=== PATIENT | male | born 1945 | race Hispanic/Latino ===

== ENCOUNTER 2018-10-29 06:19 | Day surgery (SDC) | payer MEDICARE, MEDICAID ==
[2018-10-21 12:22] VITALS: BMI 31.5
--- NOTE | 2018-10-29 07:22 | HP ---
DATE OF EXAM: 10/13/2018 The patient is going to be admitted for surgery on 10/29/2018. HISTORY OF PRESENT ILLNESS: The patient is a 72-year-old gentleman that has been suffering from a variety of problems, which include significant numbness involving his left hand, predominantly the radial third and fourth finger. He has been dropping things. He notes that this has been going on for years. He has neck pain. He also has been having progressive incontinence. He notes that when he is sitting or lying down and when he gets up, he feels he cannot hold his urine. He also notes some balance problems. He denies any abdominal complaints. PAST MEDICAL HISTORY: Significant for hypertension and hypercholesterolemia. SOCIAL HISTORY: He has never smoked. He has never drank. He lives alone. PHYSICAL EXAMINATION: Debilitated fellow, walking with a quad cane. He favors his right hip. He has 5/5 strength throughout on individual muscle testing. Sensory exam is relatively within normal limits. Reflexes are 1 to 2+ throughout. Hastings's negative bilaterally. Lhermitte sign is equivocal. Tinel sign was negative at both wrists as was Phalen sign. He has minimal tenderness to palpation of the cervical spine. Range of motion was restricted on lumbar spine. Baseline gait was markedly antalgic. LABORATORY DATA: MRI of the cervical spine shows a concerning disk herniation at C3-4 impacting the left side of his spinal cord. Other levels, there appears to be the foraminal stenosis, but no central canal compromise. EMG nerve conduction study done several years ago demonstrated severe bilateral median neuropathy consistent with carpal tunnel syndrome. I believe that his most pressing situation is the spinal cord correction at C3-4. I do believe he is also suffering with bilateral carpal tunnel syndrome. He has a hip problem. He has a lumbar spine problem, but again the overriding concern is the spinal cord compression. Particularly, in this patient, who is evincing incontinence, it would certainly may be related to some prostate disease or other phenomenon, but the cervical spine compression certainly is not helping. He also is suffering with radiculopathy, neck pain, as well as balance problems and therefore I suggested anterior diskectomy, fixation and fusion. I went over the nature of this recommendation with him including the rationale behind it, the details of the procedure itself, potential risks, complications, alternatives, realistic chance of success, and recovery time. I answered all of his questions. I was counseling and coordinating throughout our discussion. He is now being admitted for C3-4 ACDF. Montana Wilkinson MD
[2018-10-29] MEDS ORDERED: Bacitracin 500 Units/gm Oint Foilpak UD ONE (07:32)
[2018-10-29] MEDS ORDERED: Vancomycin 1 g Inj ONE (07:32)
[2018-10-29] MEDS ORDERED: Lidocaine 1% w Epi 1:100,000 Inj ONE (07:33)
[2018-10-29] MEDS ORDERED: Absorbable Gelatin Sponge Size 12-7 ONE (07:33)
[2018-10-29] MEDS ORDERED: Bupivacaine 0.5% 50 ML IJ ONE (07:33)
[2018-10-29] MEDS ORDERED: Thrombin Topical 20,000 Intl Units Spray Kit TOP ONE ×2 (07:34→09:00)
[2018-10-29] MEDS ORDERED: Propofol 10 mg/ml Inj (20 ML) ONE ×2 (07:38→09:24)
[2018-10-29] MEDS ORDERED: Rocuronium 10 mg/ml (5 ml) ONE (07:39)
[2018-10-29] MEDS ORDERED: Midazolam 2 MG/2 ML VIAL ONE (07:39)
[2018-10-29] MEDS ORDERED: Succinylcholine 200 mg/10 ml Inj IV ONE (08:07)
[2018-10-29] MEDS ORDERED: Sevoflurane - Inhalation Anesthetic Liq (250 ml) ONE (08:23)
[2018-10-29] MEDS ORDERED: CeFAZolin 1 gm in NS 100ml IVPB ONE (08:25)
[2018-10-29] MEDS ORDERED: Labetalol 5mg/ml (4ml) ONE (08:52)
[2018-10-29] MEDS ORDERED: Lidocaine 1% w Epi 1:100,000 Inj IJ ONE ×2 (09:00)
[2018-10-29] MEDS ORDERED: Bupivacaine 0.5% Inj(30mL) IJ ONE ×2 (09:00)
[2018-10-29] MEDS ORDERED: Absorbable Gelatin Sponge Size 100 MM ONE (09:00)
[2018-10-29] MEDS ORDERED: ePHEDrine 50 mg/ml Inj ONE (09:38)
[2018-10-29] MEDS ORDERED: Neostigmine Methylsulfate 3mg/3ml Syringe IV ONE (09:47)
[2018-10-29] MEDS ORDERED: Lactated Ringer's 1,000 ML IV SCH (10:00)
[2018-10-29] MEDS: HYDROmorphone 0.5 mg/0.5 ml ISec IVP PRN ×4 (10:25→11:30)
[2018-10-29] MEDS ORDERED: HYDROmorphone 0.5 mg/0.5 ml ISec ONE ×4 (10:32→11:35)
[2018-10-29] MEDS ORDERED: Potassium Chloride 20 MEQ in Dextrose 5%/0.45% NS 1,000 ML IV SCH (11:30)
[2018-10-29] MEDS: Oxycodone/Acetaminophen 5/325 mg Tab PO PRN ×2 (15:08→22:02)
--- NOTE | 2018-10-29 19:59 | OP ---
PROCEDURE DATE: 10/29/2018 PREOPERATIVE DIAGNOSIS: Cervical myelopathy secondary to spinal cord compression C3-C4. POSTOPERATIVE DIAGNOSIS: Cervical myelopathy secondary to spinal cord compression C3-C4. OPERATION: 1. Anterior cervical diskectomy C3-C4. 2. Anterior cervical fusion, C3-C4. 3. Use of intervertebral device. 4. Use of spinal instrumentation. 5. Use of autograft by means of bone marrow aspiration. SURGEONS: Satish Jimenez MD and Montana Wilkinson MD ANESTHESIA General endotracheal tube intubation. DESCRIPTION OF PROCEDURE: The patient was brought to the operating room and placed on the operating table in supine position. General anesthesia was achieved and the patient was intubated without any excessive extension of his neck. Spinal cord monitoring leads were placed throughout the patient's body. Real time monitoring was done by health care sanitary technician in the room. Remote monitoring done by a physician as well. Sequential compression boots were placed on each of the patient's legs and intravenous antibiotics were administered. The patient's arms were padded and secured at his side. A small roll was placed beneath the patient's scapula to obtain gentle extension of the neck. Baseline monitoring looked fine after that was done. Shoulders were taped down and the patient's neck was sterilely prepped and draped. The level of the incision was noted under fluoroscopy and infiltrated with lidocaine with epinephrine. An incision was made sharply to the midline to the left along Christianne's line and taken down to subcutaneous tissue using sharp and blunt dissection. Hemostasis achieved using electrocautery. The platysma was divided in a vertical fashion and mobilized in all directions in a plane bluntly developed down to the anterior cervical vertebral bodies. The midline structures were taken medially and the carotid identified and gently retracted laterally. Prevertebral fascia was removed using Metzenbaum scissors and Peanut sponge. The needle was placed and was felt to be at 3-4 disk and this was confirmed under fluoroscopy. As the needle was removed, the annulus was marked and the Longus colli muscles were cauterized and stripped back with a small T elevator. Self-retaining Trimline retractors were placed in the wound with excellent visualization of the operative field. Another fluoroscopic view was taken with the needle in the disk and again it verified with the 3-4 level. The needle was removed and the annulus sharply incised. Disk material removed with small straight and curved curettes along with the pituitary rongeur. The small lamina spreaders were placed in the disk space sequentially [id number] until we were at the posterior margin of the disk at which time the operating microscope was brought on to the field. The rest of decompression was done under microscopic visualization. Using 1 and 2-mm Kerrison rongeurs, the remaining disk tissue along with the annulus and posterior longitudinal ligament were removed in piecemeal. This was done till the ventral surface of the dura was completely decompressed. It was much more in the way of soft tissue herniation rather than bony impingement. Foraminotomies were carried out until we could easily pass a blunt tip nerve hook out on each side as well as beneath the vertebral bodies above and below the disk space. After the decompression, motor tracings stimulation was done and no electrophysiologic abnormalities were noted. The disk space was copiously irrigated with antibiotic solution. Hemostasis achieved with thrombin aided Gelfoam powder. We then proceeded with the fusion part of procedure. A pin hole was made in the C4 vertebral body and bone marrow aspirate was obtained. This was used to soak a cube of Conform sponge. Bone wax was used for hemostasis at the donor site. Trials were done, a size 5 large Bingo cage was found to be the best fit. The appropriate rasp was used while the marrow silk Conform was packed into the canal of the cage and each side was coated with Optium gel. The cage was then tamped into place and countersunk. A 60-mm AquaMed UNIPLATE was then affixed to the vertebral bodies using 60 mm self-drilling screws. Final fluoroscopic view showed excellent position of intervertebral device as well as the hardware. The screws were locked into place. The wound was copiously irrigated with antibiotic solution and hemostasis achieved with thrombin aided Gelfoam powder as well as the bipolar cautery. The wound was closed in layers, interrupted sutures of 2-0 Vicryl for the platysma, 3-0 Vicryl for the subcutaneous tissue after further irrigation, and a running subcuticular suture of 4-0 Monocryl for the skin. Steri-Strips and sterile dressing were applied. A soft cervical collar was also fixed to the patient's neck. The patient was then awakened and extubated. He is transferred to a stretcher and taken to recovery room in stable condition. He tolerated the procedure well. Estimated blood loss was 50 mL and he received a liter of crystalloid during the operation. He was actively moving all the extremities at the time of his transfer and no permanent electrophysiologic abnormalities were noted at the completion of the case. Satish Jimenez MD
[2018-10-29 23:05] VITALS: RESP 20
[2018-10-29] MEDS ORDERED: Benzocaine/Menthol (Cepacol) Lozenge MT PRN (23:36)
[2018-10-30] MEDS: Oxycodone/Acetaminophen 5/325 mg Tab PO PRN ×2 (05:37→05:44)
--- NOTE | 2018-10-30 07:35 | OP ---
PROCEDURE DATE: 10/29/2018 PREOPERATIVE DIAGNOSIS: Cervical myelopathy. POSTOPERATIVE DIAGNOSIS: Cervical myelopathy. PROCEDURE: Anterior cervical discectomy, fixation, and fusion C3-C4. SURGEON: Montana Wilkinson MD CO-SURGEON: Satish Jimenez MD TYPE OF ANESTHESIA: General endotracheal. ESTIMATED BLOOD LOSS: 50 mL. COMPLICATIONS: None. JUSTIFICATION: The patient has long history of pain, weakness, numbness, dysesthesias. He also has cervical radicular pain, also has urinary incontinence. He was found to have significant disk ridge complex of C3-C4 with signal change and a cord flattening, was offered the possibility of operative interventions via anterior discectomy, fixation, and fusion. The nature of this procedure, the rational behind this, alternatives, potential risks, complications, realistic chance of success, and recovery long-term outlook were discussed with them at length. All his questions were answered. He fully understood all the above and elected to proceed as offered. DESCRIPTION OF PROCEDURE: The patient was taken to the operating room. He was hooked up to neurophysiological monitoring. He was carefully intubated and anesthetized. He was placed on the OR table in a supine position. Pre-positioning sensory motor potentials were obtained. He was then placed in very mild extension with no change in his signals. The incision was localized with lateral fluoroscopy directly overlying the C3-C4 disk. The entire throat was then scrubbed with acetone, scrubbed, painted, and draped in the usual sterile manner. Incision was made with a 15-blade knife, approximately 4 cm in length directly overlying the C3-C4 disk. The platysma was opened in the direction of its fibers. Dissection was then carried forth from the plain between the sternocleidomastoid and the carotid laterally, the trachea and and esophagus medially to encounter the anterior spine. This was cleared with Kittner elevator. The needle was placed in exposed disk space, which was concerned to be the correct C3-C4 level. At this point, the longus coli muscles were striped laterally bilaterally. A self-retaining Worthington type retractor was placed. The anesthesiologist was asked to deflate the ET cuff. The disk was then incised. Some of the osteophytic region anterior to the disk space were elevated with the curette, removed with the pituitary rongeur. The gross discectomy was then performed with a combination of curettes and rongeurs with an intravertebral retractor. When the gross discectomy was completed, the microscope was brought in. Under microscopic vision, we were able to tease out the posterior disk material annulus with the use of various curettes and pituitaries. We were able to 1 mm Kerrison behind the annulus and thus begin the decompression. This was done with 1 and 2 mm Kerrison rongeurs. Ultimately, we were able to tease behind the posterior longitudinal ligament followed by a 1 mm Kerrison. This allowed us to completely remove all soft tissue off the anterior dura. This was done from side to side. Some of the osteophytic ridging at the end plate above and below were simply removed with the Kerrison after which a blunt nerve hook was used to inspect each foramen and behind each body to document complete decompression. At this point, the highest depth of the disk space is measured. The space was irrigated with antibiotic solution and a layer of thrombinated powdered Gelfoam used to complete the hemostasis. We then performed the small puncture in the anterior C4 vertebrae. An 18-gauge needle was used to aspirate 3 or 4 mL of bone marrow. This was impregnated on a bone matrix sponge, which was then later used to fill the fusion cage. We trialed a 5 mm carbon fiber fuse cage, which fit nicely both visually and fluoroscopically. We then decorticated the end plate above and below and tapped this carbon fiber fusion cage, filled with narrow impregnated sponge into the disk space until it was well seated and countersunk. This was confirmed both visually and fluoroscopically. At this point, we placed the appropriate size, DePuy titanium anterior plate and placed 16 mm screws partially through the plate into C3 and C4 respectively. Final x-rays confirmed excellent position of the entire construct which met the anterior plates, the two intervertebral screws, and interbody grafts. We then tightened the two screw head locking mechanisms. The retractors were withdrawn. The wound was copiously irrigated with antibiotic solution. There really was no significant bleeding identified. The wound was observed for several minutes to ensure that hemostasis was complete. A layer of thrombinated Gelfoam placed in the prevertebral space as well. The platysma was reapproximated using interrupted 2-0 Vicryl. The subcu closed with interrupted 3-0 Vicryl, and the skin closed with running 4-0 Monocryl stitch, Benzoin, and Steri-Strips. Dressing and soft collar were applied. The patient was aroused from anesthesia, easily extubated, was noted moving all four extremities with good strength. On his way to the recovery room, all counts were correct. There were no complications. Montana Wilkinson MD
[2018-10-30 09:46] VITALS: BP 160/94; PULSE 89; TEMP 98.6; O2SAT 96
--- NOTE | 2018-10-30 16:23 | RAD ---
Date of service: 10/29/2018 PROCEDURE: Intraoperative Fluoroscopy. HISTORY: CORECTOMY FINDINGS: Fluoroscopic assistance was provided for single level cervical discectomy with spinal fusion. Please refer to the operative report from VIRGINIE Arauz. 18.4 sec of fluoroscopy time was utilized with a total cumulative radiation dose of 4.31 mGy.
--- NOTE | 2018-10-30 18:07 | CON ---
DATE: 10/30/2018 HISTORY OF PRESENT ILLNESS: A 72-year-old white male admitted to the hospital for severe cervical disk disease for surgery by . The patient has history of mild hypertension, BPH, severe degenerative arthritis of the back, hips and cervical spine. The patient had numbness and tingling in the left hand and severe neck pain. The patient is seen postop. He has a left anterior neck, wound is clean and dry, somewhat swollen. The patient is complaining of severe pain on swallowing, but he is able to swallow liquids. PHYSICAL EXAMINATION: CHEST: Clear to auscultation and percussion. HEART: Regular sinus rhythm. ABDOMEN: Benign. EXTREMITIES: No cyanosis, clubbing or edema. NEUROLOGIC: He is alert and oriented x3. He is in pain approximately 6/10. He was given for . REVIEW OF SYSTEMS: Positive only for numbness and tingling in the left upper extremity, pain and swelling. The patient is negative for chest pain or palpitations. Negative for shortness of breath and cough. Negative for dysuria, hematuria, frequency or urgency. Negative for nausea, vomiting, or diarrhea. IMPRESSION: A 72-year-old white male with advanced cervical disk disease for status post diskectomy by some dysphagia postoperatively. The patient follows an outpatient and the patient also was given viscous lidocaine at home and continue on pain medication at home and follow as an outpatient. Nixon Malone MD
== END 2018-10-30 11:51 | disposition home or self-care (01) ==
LOC: SDS 06:19 → 5RNO 12:34 → SDS 10-30 11:51
PROVIDERS: ATTEND Neurological Surgery
DX: M48.02 Spinal stenosis, cervical region (principal); M54.12 Radiculopathy, cervical region; G95.20 Unspecified cord compression; R32 Unspecified urinary incontinence; E78.00 Pure hypercholesterolemia, unspecified; I10 Essential (primary) hypertension
CPT/HCPCS: 20931; 20939; 22551; 22845; 36415; 86850; 86900; 88304; 88311; C1713; C2615; G0453; J0330; J0690; J1170; J1644; J2001; J2250; J2405; J2704; J2710; J3010; J7030; J7042; J7120 ×2